=== PATIENT | male | born 1960 | race Caucasian/White ===

== ENCOUNTER → 2017-08-14 | Day surgery (SDC) | payer BC ==
[~2017-08-14] MED LIST: Lactated Ringers 1,000 ML IV SCH; Meperidine PF 50 MG/ML Syringe IV ONE; Meperidine PF 50 MG/ML Syringe ONE; Midazolam 1 MG/ML 2 ML SDV IV ONE; Midazolam 1 MG/ML 2 ML SDV ONE
--- NOTE | 2017-08-17 08:09 | OR ---
DATE OF OPERATION: 08/14/2017 PREOPERATIVE DIAGNOSIS: 1. FAMILY HISTORY OF COLON CARCINOMA. 2. HISTORY OF HEMICOLECTOMY FOR POLYPS. POSTOPERATIVE DIAGNOSIS: 1. FAMILY HISTORY OF COLON CARCINOMA. 2. HISTORY OF HEMICOLECTOMY FOR POLYPS. SURGEON: Eugenio Stokes MD PROCEDURE: FULL-LENGTH COLONOSCOPY. ANESTHESIA: Conscious sedation. COMPLICATIONS: None. SPECIMEN: None. FINDINGS: 1. Normal full-length colonoscopy. 2. Status post right hemicolectomy. RECOMMENDATIONS: Colonoscopy every five years. INDICATIONS: Mr. Bennett has a brother with a history of colon cancer. He had a prior colonoscopy where he had a massive cecal polyp that had to be removed via hemicolectomy. He is due for a followup scope. DESCRIPTION OF PROCEDURE: The patient was prepped and draped, placed in the left lateral decubitus position. A lubricated Olympus colonoscope was inserted and easily advanced to the proximal transverse colon where the patient is status post a hemicolectomy. Anastomosis site looked excellent. Bowel prep was fine. Upon withdrawal, throughout the length of the colon, I could find no signs of any polyps, mass, ulceration, or bleeding sites. No vascular abnormalities or signs of colitis. There were no significant diverticula. Rectal vault appeared benign. Retroflexion showed no perianal lesions. Air was suctioned. Scope was removed without complication. SAM/SABA /[id number]
== END ==
LOC: CC.SDS 11:12
PROVIDERS: ATTEND Family Medicine
DX: Z09 Encounter for follow-up examination after completed treatment for conditions other than malignant neoplasm (principal); Z86.010 Personal history of colon polyps; Z90.49 Acquired absence of other specified parts of digestive tract; Z80.0 Family history of malignant neoplasm of digestive organs; I10 Essential (primary) hypertension; E78.5 Hyperlipidemia, unspecified; E55.9 Vitamin D deficiency, unspecified; N40.1 Benign prostatic hyperplasia with lower urinary tract symptoms; M19.90 Unspecified osteoarthritis, unspecified site
CPT/HCPCS: J2175; J2250; J7120

== ENCOUNTER → 2022-11-21 | Day surgery (SDC) | payer BC ==
[~2022-11-21] MED LIST changes: +Ketamine 200 MG/20 ML MDV ONE; -Lactated Ringers 1,000 ML IV SCH; -Meperidine PF 50 MG/ML Syringe IV ONE; -Meperidine PF 50 MG/ML Syringe ONE; -Midazolam 1 MG/ML 2 ML SDV IV ONE; -Midazolam 1 MG/ML 2 ML SDV ONE; +Propofol 200 MG/20 ML SDV ONE; +fentaNYL 50 MCG/ML SDV ONE
[2022-11-21] MEDS: Lactated Ringers 1,000 ML IV SCH (09:46)
== END ==
LOC: CC.SDS 09:21
PROVIDERS: ATTEND Family Medicine
DX: Z12.11 Encounter for screening for malignant neoplasm of colon (principal); K57.30 Diverticulosis of large intestine without perforation or abscess without bleeding; M19.90 Unspecified osteoarthritis, unspecified site; N40.1 Benign prostatic hyperplasia with lower urinary tract symptoms; I10 Essential (primary) hypertension; E78.5 Hyperlipidemia, unspecified; Z80.0 Family history of malignant neoplasm of digestive organs; Z79.899 Other long term (current) drug therapy
CPT/HCPCS: 00812; J2704; J3010; J3490; J7120

== ENCOUNTER 2024-06-21 14:52 | Emergency (ER) | payer BC ==
[2024-06-21 15:17] LABS: BASOPHILS ABSOLUTE AUTO 0.02 10^3/uL (0.00-0.50); BASOPHILS PERCENT AUTO 0.1 % (0-1); EOSINOPHILS ABSOLUTE AUTO 0.01 10^3/uL (0.00-1.50); EOSINOPHILS PERCENT AUTO 0.1 % (0-6); HEMATOCRIT 46.7 % (42.0-52.0); HEMOGLOBIN 16.3 g/dL (14.0-18.0); IMMATURE GRAN ABSOLUTE AUTO 0.03 10^3/uL (0.00-0.49); IMMATURE GRAN PERCENT AUTO 0.2 % (0.0-4.9); LYMPHOCYTES ABSOLUTE AUTO 1.18 10^3/uL (0.60-5.00); LYMPHOCYTES PERCENT AUTO 7.5 % (24-44); MEAN CORPUSCULAR HEMOGLOBIN 29.6 pg (27.0-32.0); MEAN CORPUSCULAR HGB CONC 34.9 g/dL (32.0-36.0); MEAN CORPUSCULAR VOLUME 84.9 fL (83.0-97.0); MONOCYTES ABSOLUTE AUTO 1.08 10^3/uL (0.00-1.50); MONOCYTES PERCENT AUTO 6.8 % (0-10); NEUTROPHILS ABSOLUTE AUTO 13.45 x10^3/uL (1.80-8.00); NEUTROPHILS PERCENT AUTO 85.3 % (41-71); PLATELET COUNT,PLT 213 10^3/uL (150-400); WHITE BLOOD CELL COUNT,WBC 15.8 10^3/uL (4.0-11.0)
[2024-06-21 15:17] LABS: APPEARANCE,URINE SLIGHTLY CLOUDY (CLEAR); BILIRUBIN,URINE NEGATIVE (NEGATIVE); COLOR,URINE DARK YELLOW (YELLOW); GLUCOSE,URINE NEGATIVE (NEGATIVE); KETONES,URINE NEGATIVE (NEGATIVE); LEUKOCYTE ESTERASE,URINE NEGATIVE (NEGATIVE); NITRITE,URINE NEGATIVE (NEGATIVE); OCCULT BLOOD,URINE SMALL (NEGATIVE); PROTEIN,URINE 30 mg/dL (NEGATIVE); UROBILINOGEN,URINE 0.2 EU/dL (0.2-1.0)
[2024-06-21] MEDS: HYDROmorphone 0.5 MG/0.5 ML Syringe IVPUSH ONE (15:24)
[2024-06-21 15:27] LABS: C-REACTIVE PROTEIN 0.73 mg/dL (<=0.50)
[2024-06-21 15:32] LABS: ALBUMIN 3.8 g/dL (3.4-5.0); BILIRUBIN TOTAL 1.2 mg/dL (0.0-1.0); CALCIUM 9.1 mg/dL (8.4-10.1); CREATININE 1.9 mg/dL (0.7-1.3); EST CRCL DRUG DOSING (CG) 39.5 mL/min; PROTEIN TOTAL,TP 7.4 g/dL (6.4-8.2)
[2024-06-21 15:37] LABS: AMORPHOUS SEDIMENT,URINE MODERATE /HPF (NOT SEEN); BACTERIA,URINE NOT SEEN /HPF (NOT SEEN); MUCUS,URINE FEW /HPF (NOT SEEN); SQUAMOUS EPITHELIAL CELLS,UR NOT SEEN /HPF (NOT SEEN); WBC,URINE 0-5 /HPF (0-5)
[2024-06-21] MEDS: Sodium Chloride 0.9% 1,000 ML IV ONE (15:41)
== END 2024-06-21 17:19 | disposition home or self-care (01) ==
LOC: CC.ED 14:52
DX: N13.2 Hydronephrosis with renal and ureteral calculous obstruction (principal); I10 Essential (primary) hypertension; Z79.899 Other long term (current) drug therapy
CPT/HCPCS: 36415; 74176; 80053; 81001; 83690; 85025; 86140; 96361; 96374; 99284; J7030